=== PATIENT | male | born 1990 | race African-American/Black ===

== ENCOUNTER 2025-06-07 22:22 | Emergency (ER) | payer MEDICAID, SELFPAY ==
[2025-06-07 22:26] VITALS: BP 132/75; PULSE 85; O2SAT 96
[2025-06-07 22:33] VITALS: BP 118/76; PULSE 68; RESP 16; TEMP 36.5; O2SAT 95; BMI 22.6
--- NOTE | 2025-06-08 02:12 | ED.GENADULT ---
HPI - General Adult General Chief complaint: General Medical Stated complaint: feels weird after smoking marijuana Time Seen by Provider: 06/08/25 01:40 Source: patient Mode of arrival: ambulatory Limitations: no limitations History of Present Illness ED Provider: Ash PERKINS HPI narrative: Patient is a 34-year-old male presenting to the ED reporting approximately 45 minutes prior to arrival he smoked marijuana and felt odd, stating his words were being spoken slowly, in his lips were tingling. Patient reports this is an unusual response to marijuana, patient reports he bought the marijuana at a trustworthy dispensary, but reports he may have bought a different strain of the marijuana today. The patient reports since arriving in the ED his symptoms have gradually improved and at time of this provider's interviewed patient's symptoms have fully resolved. Related Data Allergies Allergy/AdvReac Type Severity Reaction Status Date / Time No Known Allergies Allergy Verified 06/07/25 22:36 Review of Systems Review of Systems: Yes all other systems are reviewed and are negative PMFSH Social History Social History Smoked in Last 30 Days: No Use of substances other than those prescribed or required for medical reasons: Yes Substance Use Type: Marijuana Physical Exam ED Vital Signs: Vital Signs - 24 hr 06/07/25 22:33 Temperature 97.7 F Pulse Rate 68 Respiratory Rate 16 Blood Pressure 118/76 Pulse Oximetry 95 Oxygen Delivery Method Room Air BMI result Body Mass Index 22.6 CONSTITUTIONAL: The patient appears non-toxic, well nourished and in no acute distress. Vital signs as documented. HEAD: Atraumatic, normocephalic. EYES: EOMs grossly intact, pupils equal, conjunctiva clear, no exudate. ENT: Nares patent, no discharge. Airway patent, no audible stridor, visible mucosa is pink and moist without noted lesions. NECK: trachea is midline, no obvious masses or gross abnormalities. CHEST: Symmetric movement, normal appearance. LUNGS: Non-labored work of breathing. CARDIAC: No evidence of hypoperfusion. ABDOMEN: Nondistended, no obvious injury. : Deferred. EXTREMITIES: Moves all extremities spontaneously without reported pain. No obvious injury or deformity noted. NEURO: Alert and oriented x3, CN II-XII appear grossly intact. Cerebellar Functioning grossly intact. Speech clear and appropriate. SKIN: Warm, dry, color appropriate. No rashes or lesions noted. Medical Decision Making Medical Decision Making MDM Narrative: 2:12 AM 06/08/2025 (Dorinda PERKINS): Patient is a 34-year-old male presenting to the ED reporting approximately 45 minutes prior to arrival he smoked marijuana and felt odd, stating his words were being spoken slowly, in his lips were tingling. Patient reports this is an unusual response to marijuana, patient reports he bought the marijuana at a trustworthy dispensary, but reports he may have bought a different strain of the marijuana today. The patient reports since arriving in the ED his symptoms have gradually improved and at time of this provider's interviewed patient's symptoms have fully resolved. Patient reports he feels back to baseline as requesting discharge. The patient's exam is benign, patient has no evidence of clinical intoxication. The patient will be discharged with supportive care and outpatient PCP follow up. Admission/Observation Consideration of admission/observation: Escalation of care including admission/observation considered Discharge Plan Discharge Clinical Impression: Adverse reaction to cannabis Patient Disposition: Home, Self-Care Instructions: Cannabis Use Disorder (ED) Additional Instructions: Thank you for choosing [facility] for your care today. Thankfully your exam and vital signs today show no evidence of an acute emergent process requiring admission to the hospital or continued ED observation, and it is safe to discharge you home. Please follow up with your primary care physician for re-evaluation, additional management of your symptoms, and continued preventative care. If you do not have a primary care physician, please call the [facility] at [phone] to establish a new primary care physician. While waiting to establish your new primary care physician, you can call our [facility]in [facility] at [phone] for non-emergency needs. Please return to the emergency department if you develop a severe or sudden change in your symptoms, a fever over 100.4 that does not improve with Tylenol or Ibuprofen, recurrent vomiting, or any other new or worsening symptoms or concerns. Print Language: [place]arag[place]
[2025-06-08 02:22] VITALS: BP 121/70; PULSE 66; RESP 16; TEMP 36.8; O2SAT 99
== END 2025-06-08 02:26 | disposition home or self-care (01) ==
LOC: HO.ED 06-08 02:26
PROVIDERS: Emergency Provider Emergency Medicine
DX: R20.2 Paresthesia of skin (principal); T40.715A Adverse effect of cannabis, initial encounter; Y92.9 Unspecified place or not applicable
CPT/HCPCS: 99282; 99283